=== PATIENT | female | born 2000 | race Caucasian/White ===

== ENCOUNTER 2022-01-27 08:40 | Emergency (ER) | payer SELFPAY ==
[~2022-01-27 08:40] MED LIST: MACROBID 100 M100 M1 PO; ZOFRAN4 MG PO
[2022-01-27 09:22] LABS: HEMOGLOBIN 12.2 gm/dl (12.3-15.3); RED BLOOD COUNT 4.35 M/UL (4.00-5.10); WHITE BLOOD COUNT 8.7 K/UL (4.5-11.0)
[2022-01-27 09:41] LABS: BUN/CREATININE RATIO 19 (0-10)
[2022-01-27] MEDS ORDERED: ZOFRAN ODT 4 MG4 MG GT (12:30)
[2022-01-27] MEDS ORDERED: CEPHALEXIN500 M1 PO (12:30)
[2022-01-28] MEDS ORDERED: OMEPRAZOLE20 M2 PO (05:48)
[2022-01-28] MEDS ORDERED: ONDANSETRON ODT4 MG SL (05:48)
[2022-01-28] MEDS ORDERED: COLACE100 MG PO (05:48)
== END 2022-01-27 12:48 | disposition home or self-care (01) ==
LOC: ER1 08:40
PROVIDERS: Physician Assistant
DX: N30.01 Acute cystitis with hematuria (principal); R11.2 Nausea with vomiting, unspecified; F17.290 Nicotine dependence, other tobacco product, uncomplicated
CPT/HCPCS: 80053; 81001; 83690; 85025; 87086; 93005; 96374; 96375; 96376; 99284; C9113; J0696; J2405; J2765

== ENCOUNTER 2022-01-28 03:46 | Emergency (ER) | payer SELFPAY ==
[~2022-01-28 03:46] MED LIST changes: +CEPHALEXIN500 M1 PO; +ZOFRAN ODT 4 MG4 MG GT
[2022-01-28 04:30] LABS: HEMOGLOBIN 12.7 gm/dl (12.3-15.3); RED BLOOD COUNT 4.58 M/UL (4.00-5.10); WHITE BLOOD COUNT 8.2 K/UL (4.5-11.0)
[2022-01-28 04:51] LABS: BUN/CREATININE RATIO 11 (0-10)
[2022-01-28] MEDS ORDERED: OMEPRAZOLE20 M2 PO (05:48)
[2022-01-28] MEDS ORDERED: ONDANSETRON ODT4 MG SL (05:48)
[2022-01-28] MEDS ORDERED: COLACE100 MG PO (05:48)
[2022-01-29] MEDS ORDERED: PHENERGAN 25 MG25 M1 PO (15:17)
== END 2022-01-28 06:40 | disposition home or self-care (01) ==
LOC: ER1 03:46
DX: R10.9 Unspecified abdominal pain (principal); R11.2 Nausea with vomiting, unspecified; R10.819 Abdominal tenderness, unspecified site
CPT/HCPCS: 74018; 80053; 81001; 83690; 84703; 85025; 87086; 96365; 96375; 99284; C9113; J1885; J2405; J2550

== ENCOUNTER 2022-01-29 12:35 | Emergency (ER) | payer SELFPAY ==
[~2022-01-29 12:35] MED LIST changes: +COLACE100 MG PO; +OMEPRAZOLE20 M2 PO; +ONDANSETRON ODT4 MG SL
[2022-01-29 13:33] LABS: HEMOGLOBIN 13.3 gm/dl (12.3-15.3); RED BLOOD COUNT 4.75 M/UL (4.00-5.10)
[2022-01-29 13:56] LABS: BUN/CREATININE RATIO 10 (0-10)
[2022-01-29] MEDS ORDERED: PHENERGAN 25 MG25 M1 PO (15:17)
== END 2022-01-29 16:05 | disposition home or self-care (01) ==
LOC: ER1 12:35
PROVIDERS: Emergency Medicine
DX: R10.30 Lower abdominal pain, unspecified (principal); R11.2 Nausea with vomiting, unspecified
CPT/HCPCS: 80053; 83690; 85025; 86140; 87210; 96374; 96375; 99284; J1885; J2550; Q9967

== ENCOUNTER → 2022-02-24 | Outpatient (CLI) | payer OTHER ==
[~2022-02-24] MED LIST changes: +PHENERGAN 25 MG25 M1 PO
== END ==
LOC: EXRD 10:26
DX: R10.11 Right upper quadrant pain (principal)
CPT/HCPCS: 76705

== ENCOUNTER → 2022-03-26 | Outpatient (CLI) | payer OTHER | LOC: NM 09:00 | DX: K21.9 Gastro-esophageal reflux disease without esophagitis (principal) | CPT/HCPCS: 78264; A9541 ==